=== PATIENT | male | born 1990 | race African-American/Black ===

== ENCOUNTER 2017-10-28 04:58 | Emergency (ER) | payer BC ==
[~2017-10-28] VITALS: Ht 193 cm; Wt 95.3 kg
[2017-10-28 04:58] VITALS: BP 130/96
[~2017-10-28 04:58] MED LIST: CYCL-331 PO; HYDR-971 PO; IBUP800T19 PO
[2017-10-28] MEDS ORDERED: [UNRECOGNIZED DRUG - CODE] TP (05:35)
--- NOTE | 2017-10-28 05:37 | PHYS DOC ---
General Chief Complaint: SEXUALLY TRANSMITTED DISEASE Stated Complaint: STD CHECK Time Seen by MD: 05:00 Source: patient Exam Limitations: no limitations Problems: History of Present Illness Initial Comments Patient is a 27-year-old male who comes to the ED for STD check. Patient states that he was notified by a recent sexual partner that they had tested positive for gonorrhea and the patient needed to be tested. The patient went to the health department yesterday and received Rocephin and Zithromax appropriately however the patient states he forgot to mention to them is other concerns. Patient states that he thinks he has a general warts and it has been there for "a long time." It is at the dorsal aspect of the mid shaft of his penis is nontender and has not changed over time. He tried applying apples cider vinegar on the genital wart without any improvement and when asked he says he found this remedy online. He also has a concern at the meatus he feels there is a white abnormality which is no perceived by me. He denies any unexplained weight loss and night sweats fever chills or other symptoms. He does not have a regular doctor and does not use barrier protection regularly. Prior to being treated yesterday he says he did have some mild dysuria which has resolved. Timing/Duration: other Severity/Quality: moderate Location: urethral Radiation: none Activities at Onset: other Prior Genitourinary Problems: none Sexual [place] History: less than 2 months ago Modifying Factors: worse with urinating Associated Symptoms: dysuria, mass Allergies: Coded Allergies: No Known Drug Allergies (Unverified , 12/22/16) Past Medical History Medical History: no pertinent history Surgical History: no surgical history Social History Smoker: non-smoker Alcohol: occasionally Drugs: none Review of Systems Constitutional: denies chills, denies diaphoresis, denies fever Respiratory: denies cough, denies shortness of breath Cardiovascular: denies chest pain, denies palpitations Gastrointestinal: denies diarrhea, denies nausea, denies vomiting Genitourinary: see HPI Musculoskeletal: denies back pain, denies joint pain, denies neck pain Skin: see HPI Physical Exam General Appearance: WD/WN, no apparent distress Neck: non-tender, supple Cardiovascular/Respiratory: normal peripheral pulses, no respiratory distress Gastrointestinal: non tender, soft Male Genitals: other (0.5 cm hyperkeratotic dry lesion at the mid shaft dorsal penis consistent with a wart.) Extremities: normal range of motion, non-tender Neurologic/Psychiatric: alert, oriented x 3 Skin: normal color, warm/dry Orders, Labs, Meds I discussed STI prevention and barrier protection. I discussed the need to obtain medical advice from actual biomedical manager and not from random online opinion sources. I discussed the need to obtain a PCP for follow-up. Discussed prescription and [id number] medications patient expressed agreement and understanding of treatment plan. Departure Time of Disposition: 05:35 Disposition: 01 HOME, SELF-CARE Diagnosis: genital wart Condition: STABLE Patient Instructions: Genital Warts, [id number] Additional Instructions: Barrier protection for all sexual contact. Use the medication as prescribed, it may be used for as long as 4 months until symptoms have completely resolved. Follow-up with your doctor or the health department for further evaluation and treatment of this condition. Return to the ED with new or changing symptoms. WILL GAMBLE DO Oct 28, 2017 05:37
== END 2017-10-28 05:44 | disposition home or self-care (01) ==
LOC: ER 04:58
DX: A63.0 Anogenital (venereal) warts (principal)
CPT/HCPCS: 99283